=== PATIENT | male | born 1985 | race African-American/Black ===

== ENCOUNTER 2016-10-17 12:31 | Emergency (ER) | payer MEDICAID ==
[~2016-10-17] VITALS: Ht 172.7 cm; Wt 65.8 kg
[2016-10-17] MEDS ORDERED: ZOLOFT25 MG ORAL (12:49)
[2016-10-17 13:12] VITALS: BP 106/67
--- NOTE | 2016-10-17 13:34 | Emergency Room Report ---
History of Present Illness General Chief Complaint: Head Injury Source: Patient Present Illness HPI 31-year-old male presents to the emergency department complaining of bilateral erythema of the eyes, increased lacrimation and Prelone discharge x 2 days. denies eye pain, photophobia, flashing lights, floaters, or loss of vision. Patient also reports nasal congestion and 3 /10 in severity headache which she describes as pressure and primarily on the left side. Patient states that he is status post fall one week ago and that his headache is on the same side. Patient denies loss of consciousness he can recall the entire event and he denies taking blood thinning medications. Denies N/V/F/C or rashes. Denies numbness tingling or loss of sensation or gross motor movements of the extremities, incontinence of bowel or bladder. Denies CP, Palpitations, LOC, AMS , dizziness, Changes in Vision, Sensation, paresthesias, or a sudden severe headache. Patient History Past Medical History: see triage record Past Surgical History: none Pertinent Family History: none Immunizations: UTD Reviewed Nursing Documentation: PMH: Agreed, PSxH: Agreed Nursing Documentation-PMH Past Medical History: No History, Except For History Of Psychiatric Problem: Yes - depressing Review of Systems All Other Systems: negative except mentioned in HPI Physical Exam Vital Signs Date Time Temp Pulse Resp B/P Pulse Ox O2 Delivery O2 Flow Rate FiO2 10/17/16 12:41 98.1 62 16 106/67 98 Room Air Sp02 EP Interpretation: reviewed, normal General Appearance: no apparent distress, alert, GCS 15, non-toxic Head: normocephalic, atraumatic Eyes: bilateral eye EOMI, bilateral eye PERRL, bilateral eye normal inspection , bilateral eye other - bilateral erythema of the sclera, EOMI, PeRRL, increased lacrimation noted, and d/c in the right eye. ENT: hearing grossly normal, normal pharynx, normal voice, TMs + canals normal , uvula midline, moist mucus membranes, nasal congestion - clear rhinorrhea bilaterally, other - ttp to the frontal sinuses, no purulent nasal d/c Neck: full range of motion Respiratory: lungs clear, normal breath sounds, speaking full sentences Cardiovascular #1: regular rate, rhythm Musculoskeletal: back normal, gait/station normal, normal range of motion, non- tender Neurologic: alert, oriented x3, responsive, motor strength/tone normal, sensory intact, cerebellar normal, normal gait, speech normal, no pronator, 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 Gil is my supervising Physician whom patient management has been discussed with. Diagnostic Impression: Primary Impression: Conjunctivitis Qualified Codes: H10.33 - Unspecified acute conjunctivitis, bilateral Additional Impression: Nasal congestion ER Course 31-year-old male presents to the emergency department complaining of bilateral erythema of the eyes, increased lacrimation and Prelone discharge x 2 days. denies eye pain, photophobia, flashing lights, floaters, or loss of vision. Patient also reports nasal congestion and 3 /10 in severity headache which she describes as pressure and primarily on the left side. Patient states that he is status post fall one week ago and that his headache is on the same side. Patient denies loss of consciousness he can recall the entire event and he denies taking blood thinning medications. Denies N/V/F/C or rashes. Denies numbness tingling or loss of sensation or gross motor movements of the extremities, incontinence of bowel or bladder. Denies CP, Palpitations, LOC, AMS , dizziness, Changes in Vision, Sensation, paresthesias, or a sudden severe headache. Ddx considered but are not limited to: corneal abrasion, acute glaucoma, globe rupture, FB, Corneal Ulcer, conjunctivitis. Iridis, orbital cellulitis,keratitis , sinusitis Vital signs: are WNL, pt. is afebrile H&PE are most consistent with: bacterial conjunctivitis, and URI with sinus RAMIRES. - given physical exam and HPI, I do no suspect an emergent intracranial process at this time. ORDERS: none at this time. ED INTERVENTIONS: none at this time. d/w pt. conservative tx of his sinus symptoms, and that he will receive abx eye drops. d/w pt. to follow up with primary care, or return to ED with worsening or new symptoms. DISCHARGE: At this time pt. is stable for d/c to home. Will provide printed patient care instructions, and any necessary prescriptions. Care plan and follow up instructions have been discussed with the patient prior to discharge. Last Vital Signs Date Time Temp Pulse Resp B/P Pulse Ox O2 Delivery O2 Flow Rate FiO2 10/17/16 13:12 98.1 62 16 106/67 98 Room Air Disposition: HOME, SELF-CARE Condition: Stable Scripts Acetaminophen* (TYLENOL EXTRA STRENGTH*) 500 Mg Tablet 500 MG ORAL Q6H, #20 TAB 0 Refills Prov: Mary Motley 10/17/16 Cetirizine Hcl/Pseudoephedrine (ZYRTEC-D TABLET) 1 Each Tab.er.12h 1 EACH ORAL Q12HR for 10 Days, #20 TAB Prov: Mary Motley 10/17/16 Ofloxacin (OCUFLOX) 5 Ml Drops 5 DROP OP BID for 7 Days, #5 ML Prov: Mary Motley 10/17/16 Referrals: [facility],REFERRING (PCP) Patient Instructions: Bacterial Conjunctivitis Additional Instructions: Take medications as directed. Follow up with a Primary Care Provider in 3-5 days, even if your symptoms have resolved. --Please review list of primary care clinics, if you do not already have a primary care provider Return sooner to ED if new symptoms occur, or current symptoms become worse. - Please note that this Emergency Department Report was dictated using [employer] technology software, occasionally this can lead to erroneous entry secondary to interpretation by the dictation equipment. Mary Motley Oct 17, 2016 13:34
[2016-10-17] MEDS ORDERED: OCUFLOX5 ML OP (13:39)
[2016-10-17] MEDS ORDERED: TYLENOL EXTRA500 MG ORAL (13:39)
[2016-10-17] MEDS ORDERED: ZYRTEC-D TABLE1 EACH ORAL (13:39)
== END 2016-10-17 13:51 | disposition home or self-care (01) ==
LOC: EMR 13:25
DX: H10.33 Unspecified acute conjunctivitis, bilateral (principal); R09.81 Nasal congestion; R51 Headache
CPT/HCPCS: 99284